=== PATIENT | male | born 1940 | race Caucasian/White ===

== ENCOUNTER 2017-02-08 13:41 | Observation (INO) | payer MEDICARE ==
[~2017-02-08] VITALS: Ht 170.2 cm; Wt 75.9 kg
[2017-02-08 14:07] VITALS: BP 144/75; PULSE 93; RESP 19; TEMP 99; O2SAT 99
--- NOTE | 2017-02-08 14:42 | PD ---
HPI Chief Complaint: General Weakness Time Seen by Provider: 14:30 Travel History International Travel<30 days: No Contact w/Intl Traveler<30days: No Traveled to known affect area: No History of Present Illness HPI This is a 76-year-old male who presents via EMS from home with a report of generalized weakness. Reportedly he has a history of dementia. History is very limited as there is no family available to provide history. I attempted to call his Cecilia on the phone numbers listed however there is no answer. The patient reports that he feels fine. He denies any headache, chest pain or shortness of breath, abdominal pain, nausea or vomiting, diarrhea, difficulty with urination, numbness or tingling or weakness in the extremities. Reportedly he lives with his . [facility] Social History Tobacco Use: No (unable to verify) Allergies-Medications (Allergen,Severity, Reaction): Coded Allergies: No Known Allergies (Verified Allergy, Severe, 03/09/06) Reported Meds & Prescriptions Reported Meds & Active Scripts Active Reported Metformin (Metformin HCl) 500 Mg Tab 500 Mg PO BIDPC With meals Carbidopa-Levodopa 25-100 Mg Tab 1 Tab PO Q8HR Aspirin 81 (Aspirin) 81 Mg Tabdr 81 Mg PO DAILY Galantamine ER (Galantamine Hydrobromide) 8 Mg Caper 8 Mg PO DAILY Lisinopril 5 Mg Tab 5 Mg PO DAILY Review of Systems ROS Limitations: Poor Historian Except as stated in HPI: all other systems reviewed are Neg Physical Exam Exam Limitations: Poor Historian Narrative GENERAL: Well-developed well-nourished male in no acute distress laying on stretcher. He is alert and oriented to person and place. He does not believe the present illness. He thinks that the year is 1997. SKIN: Warm and dry. HEAD: Atraumatic. Normocephalic. EYES: Pupils equal and round. No scleral icterus. No injection or drainage. ENT: No nasal bleeding or discharge. Mucous membranes pink and moist. NECK: Trachea midline. No JVD. CARDIOVASCULAR: Regular rate and rhythm. No murmur appreciated. RESPIRATORY: No accessory muscle use. Clear to auscultation. Breath sounds equal bilaterally. GASTROINTESTINAL: Abdomen soft, non-tender, nondistended. Hepatic and splenic margins not palpable. MUSCULOSKELETAL: No obvious deformities. No clubbing. No cyanosis. No edema. NEUROLOGICAL: Awake and alert. No obvious cranial nerve deficits. Motor grossly within normal limits. Normal speech. PSYCHIATRIC: Appropriate mood and affect; insight and judgment normal. Data Data Last Documented VS Vital Signs Date Time Temp Pulse Resp B/P Pulse Ox O2 Delivery O2 Flow Rate FiO2 02/08/17 15:28 78 15 154/77 97 Room Air 02/08/17 14:07 99.0 Orders Electrocardiogram (02/08/17 14:39) Complete Blood Count With Diff (02/08/17 14:39) Comprehensive Metabolic Panel (02/08/17 14:39) Lactic Acid Sepsis Protocol (02/08/17 14:39) Ckmb (Isoenzyme) Profile (02/08/17 14:39) Troponin I (02/08/17 14:39) Urinalysis - C+S If Indicated (02/08/17 14:39) Blood Culture (02/08/17 14:39) Chest, Single Ap (02/08/17 14:39) Ecg Monitoring (02/08/17 14:39) Iv Access Insert/Monitor (02/08/17 14:39) Oximetry (02/08/17 14:39) Oxygen Administration (02/08/17 14:39) Ct Brain W/O Iv Contrast(Rout) (02/08/17 14:39) Ceftriaxone Inj (Rocephin Inj) (02/08/17 15:45) Azithromycin Inj (Zithromax Inj) (02/08/17 15:45) Admit To Inpatient (02/08/17 ) Inpatient Certification (02/08/17 ) Vital Signs (Adult) MIKE.Q4H (02/08/17 18:08) Scd Bilateral/Knee High MIKE.QSHIFT (02/08/17 18:08) Acetaminophen (Tylenol) (02/08/17 18:15) Activity Oob Ad Celeste (02/08/17 18:08) Resp Oxygen Tito C Titrat 1-4 L (02/08/17 ) Diet Regular Basic (02/08/17 Dinner) Admit Order (Ed Use Only) (02/08/17 18:18) Labs Laboratory Tests Test 02/08/17 14:50 White Blood Count 13.6 TH/MM3 Red Blood Count 4.37 MIL/MM3 Hemoglobin 13.9 GM/DL Hematocrit 40.6 % Mean Corpuscular Volume 93.0 FL Mean Corpuscular Hemoglobin 31.8 PG Mean Corpuscular Hemoglobin 34.2 % Concent Red Cell Distribution Width 12.7 % Platelet Count 214 TH/MM3 Mean Platelet Volume 7.2 FL Neutrophils (%) (Auto) 91.5 % Lymphocytes (%) (Auto) 3.5 % Monocytes (%) (Auto) 4.9 % Eosinophils (%) (Auto) 0.0 % Basophils (%) (Auto) 0.1 % Neutrophils # (Auto) 12.4 TH/MM3 Lymphocytes # (Auto) 0.5 TH/MM3 Monocytes # (Auto) 0.7 TH/MM3 Eosinophils # (Auto) 0.0 TH/MM3 Basophils # (Auto) 0.0 TH/MM3 CBC Comment DIFF FINAL Differential Comment Sodium Level 135 MEQ/L Potassium Level 4.1 MEQ/L Chloride Level 102 MEQ/L Carbon Dioxide Level 25.1 MEQ/L Anion Gap 8 MEQ/L Blood Urea Nitrogen 21 MG/DL Creatinine 1.14 MG/DL Estimat Glomerular Filtration 62 ML/MIN Rate Random Glucose 128 MG/DL Lactic Acid Level 1.8 mmol/L Calcium Level 8.5 MG/DL Total Bilirubin 0.6 MG/DL Aspartate Amino Transf 14 U/L (AST/SGOT) Alanine Aminotransferase 18 U/L (ALT/SGPT) Alkaline Phosphatase 39 U/L Total Creatine Kinase 48 U/L Troponin I LESS THAN 0.02 NG/ML Total Protein 6.9 GM/DL Albumin 3.3 GM/DL MDM Medical Decision Making Medical Screen Exam Complete: Yes Emergency Medical Condition: Yes Medical Record Reviewed: Yes Differential Diagnosis Dementia, sepsis, generalized weakness, difficulty with activities of daily living, CVA Narrative Course This is a 76-year-old male with history of dementia reportedly who comes from home with the report of generalized weakness. I called the numbers listed for his Cecilia several times and was unable to get additional history. He does feel somewhat warm to palpation and his pulse is slightly elevated at 93. Plan is for basic lab work, blood cultures, lactic acid, CT brain, chest x- ray. This patient was moved from the ambulance hallway to the echo pod where care was transitioned to Dr. Garcia. Girish Paul Feb 08, 2017 14:42
--- NOTE | 2017-02-08 15:19 | PD ---
Physical Exam Date Seen by Provider: Feb 08, 2017 Time Seen by Provider: 15:15 Narrative Patient was initially seen in the ambulance [facility] by CARITO Winters. Please see his notes for further Data Data Last Documented VS Vital Signs Date Time Temp Pulse Resp B/P Pulse Ox O2 Delivery O2 Flow Rate FiO2 02/08/17 15:28 78 15 154/77 97 Room Air 02/08/17 14:07 99.0 Orders Electrocardiogram (02/08/17 14:39) Complete Blood Count With Diff (02/08/17 14:39) Comprehensive Metabolic Panel (02/08/17 14:39) Lactic Acid Sepsis Protocol (02/08/17 14:39) Ckmb (Isoenzyme) Profile (02/08/17 14:39) Troponin I (02/08/17 14:39) Urinalysis - C+S If Indicated (02/08/17 14:39) Blood Culture (02/08/17 14:39) Chest, Single Ap (02/08/17 14:39) Ecg Monitoring (02/08/17 14:39) Iv Access Insert/Monitor (02/08/17 14:39) Oximetry (02/08/17 14:39) Oxygen Administration (02/08/17 14:39) Ct Brain W/O Iv Contrast(Rout) (02/08/17 14:39) Ceftriaxone Inj (Rocephin Inj) (02/08/17 15:45) Azithromycin Inj (Zithromax Inj) (02/08/17 15:45) Admit To Inpatient (02/08/17 ) Inpatient Certification (02/08/17 ) Vital Signs (Adult) MIKE.Q4H (02/08/17 18:08) Scd Bilateral/Knee High MIKE.QSHIFT (02/08/17 18:08) Acetaminophen (Tylenol) (02/08/17 18:15) Activity Oob Ad Celeste (02/08/17 18:08) Resp Oxygen Tito C Titrat 1-4 L (02/08/17 ) Diet Regular Basic (02/08/17 Dinner) Admit Order (Ed Use Only) (02/08/17 18:18) Labs Laboratory Tests Test 02/08/17 14:50 White Blood Count 13.6 TH/MM3 Red Blood Count 4.37 MIL/MM3 Hemoglobin 13.9 GM/DL Hematocrit 40.6 % Mean Corpuscular Volume 93.0 FL Mean Corpuscular Hemoglobin 31.8 PG Mean Corpuscular Hemoglobin 34.2 % Concent Red Cell Distribution Width 12.7 % Platelet Count 214 TH/MM3 Mean Platelet Volume 7.2 FL Neutrophils (%) (Auto) 91.5 % Lymphocytes (%) (Auto) 3.5 % Monocytes (%) (Auto) 4.9 % Eosinophils (%) (Auto) 0.0 % Basophils (%) (Auto) 0.1 % Neutrophils # (Auto) 12.4 TH/MM3 Lymphocytes # (Auto) 0.5 TH/MM3 Monocytes # (Auto) 0.7 TH/MM3 Eosinophils # (Auto) 0.0 TH/MM3 Basophils # (Auto) 0.0 TH/MM3 CBC Comment DIFF FINAL Differential Comment Sodium Level 135 MEQ/L Potassium Level 4.1 MEQ/L Chloride Level 102 MEQ/L Carbon Dioxide Level 25.1 MEQ/L Anion Gap 8 MEQ/L Blood Urea Nitrogen 21 MG/DL Creatinine 1.14 MG/DL Estimat Glomerular Filtration 62 ML/MIN Rate Random Glucose 128 MG/DL Lactic Acid Level 1.8 mmol/L Calcium Level 8.5 MG/DL Total Bilirubin 0.6 MG/DL Aspartate Amino Transf 14 U/L (AST/SGOT) Alanine Aminotransferase 18 U/L (ALT/SGPT) Alkaline Phosphatase 39 U/L Total Creatine Kinase 48 U/L Troponin I LESS THAN 0.02 NG/ML Total Protein 6.9 GM/DL Albumin 3.3 GM/DL MDM Medical Record Reviewed: Yes Supervised Visit with DREW: No Narrative Course 76-year-old male presents with worsening mental status changes and fever. The patient has pneumonia with a white count cell of 13.8. The patient has been given Rocephin and Zithromax. He is also mildly dehydrated. There is a call out to for admission. He was unable to call back until an hour and a half later. A call went out to Dr. Peewee Delgado who is gracious enough to put in admission orders. Dr. Delgado will make Dr. Deshpande aware of this admission. Diagnosis Primary Impression: Pneumonia Additional Impressions: Acute on chronic alteration in mental status Dehydration Admitting Information Admitting Physician Requests: Admit Bean Garcia MD Feb 08, 2017 15:19
[2017-02-08 15:20] LABS: AUTOMATED NEUTROPHIL # 12.4 TH/MM3 (1.8-7.7); BASOPHIL % 0.1 % (0.0-2.0); HEMATOCRIT 40.6 % (39.0-51.0); HEMO FLAGS DIFF FINAL; LYMPH % 3.5 % (9.0-44.0); LYMPHOCYTE # 0.5 TH/MM3 (1.0-4.8); MEAN CORPUSCULAR HEMOGLOBIN 31.8 PG (27.0-34.0); MEAN CORPUSCULAR HGB CONC 34.2 % (32.0-36.0); MONO % 4.9 % (0.0-8.0); NEUT % 91.5 % (16.0-70.0); PLATELET COUNT 214 TH/MM3 (150-450); RED BLOOD COUNT 4.37 MIL/MM3 (4.50-5.90); RED CELL DISTRIBUTION WIDTH 12.7 % (11.6-17.2); WHITE BLOOD COUNT 13.6 TH/MM3 (4.0-11.0)
--- NOTE | 2017-02-08 15:23 | RADRPT ---
EXAM DATE/TIME: 02/08/2017 14:55 [facility] COMPARISON: No previous studies available for comparison. INDICATIONS : Fever and weakness. Confusion. MEDICAL HISTORY : Unobtainable. SURGICAL HISTORY : Unobtainable. ENCOUNTER: Initial ACUITY: 1 day PAIN SCORE: 0/10 LOCATION: Bilateral chest FINDINGS: Patchy airspace disease is seen in the right lung. Minimal parenchymal changes are present in the le ft base. The heart is minimally large. There is no failure. CONCLUSION: Parenchymal changes on the right suspicious for inflammatory process. Perez Zhou MD FACR on February 08, 2017 at 15:19 Board Certified Radiologist. This report was verified electronically.
[2017-02-08 15:28] VITALS: BP 154/77; PULSE 78; RESP 15; O2SAT 97
[2017-02-08 15:37] LABS: ALT (GPT) 18 U/L (12-78); ANION GAP 8 MEQ/L (5-15); AST (GOT) 14 U/L (15-37); BICARBONATE 25.1 MEQ/L (21.0-32.0); BLOOD UREA NITROGEN 21 MG/DL (7-18); CHLORIDE 102 MEQ/L (98-107); GLOMERULAR FILTRATION RATE 62 ML/MIN (>89); POTASSIUM 4.1 MEQ/L (3.5-5.1); SODIUM (NA) 135 MEQ/L (136-145)
[2017-02-08 15:41] LABS: ALKALINE PHOSPHATASE 39 U/L (45-117); TOTAL BILIRUBIN ADULT 0.6 MG/DL (0.2-1.0)
[2017-02-08 15:42] LABS: CREATINE KINASE 48 U/L (39-308)
[2017-02-08] MEDS ORDERED: OMEP20CA2 (15:42)
[2017-02-08] MEDS ORDERED: ACET160T11 (15:42)
[2017-02-08] MEDS ORDERED: CARB25TA9 PO (15:42)
[2017-02-08] MEDS ORDERED: ASPI-110 PO (15:42)
[2017-02-08] MEDS ORDERED: LISI-519 PO (15:42)
[2017-02-08] MEDS ORDERED: METF500T PO (15:42)
[2017-02-08] MEDS ORDERED: GALA8CAP PO (15:42)
[2017-02-08] MEDS ORDERED: cefTRIAXone INJ 1,000 MG in SODIUM CHLORIDE 0.9% INJ 100 ML IV ONE (15:45)
[2017-02-08] MEDS ORDERED: AZITHROMYCIN INJ 500 MG in SODIUM CHLOR 0.9% 250 ML INJ 250 ML IV ONE (15:45)
--- NOTE | 2017-02-08 16:00 | RADRPT ---
EXAM DATE/TIME: 02/08/2017 15:29 [facility] COMPARISON: No previous studies available for comparison. INDICATIONS : Patient is confused, altered mental status with fever. RADIATION DOSE: 56.39 CTDIvol (mGy) MEDICAL HISTORY : None SURGICAL HISTORY : None. ENCOUNTER: Initial ACUITY: 1 day PAIN SCALE: 3/10 LOCATION: Bilateral cranial TECHNIQUE: Multiple contiguous axial images were obtained of the head. Using automated exposure control and adj ustment of the mA and/or kV according to patient size, radiation dose was kept as low as reasonably a chievable to obtain optimal diagnostic quality images. DICOM format image data is available electro nically for review and comparison. FINDINGS: Mild central cerebral atrophy is noted. Old infarct involving the left frontal lobe is noted. Moder ate periventricular white matter small vessel ischemic changes are noted bilaterally. There is evidence of old lacunar infarcts within the right basal ganglia. There is no acute hemorrhage, midline shift or extraaxial f luid collections. No acute infarction is noted. There is a small 7 mm calcified right anterior parafalcine meningioma. The bone windows are unremarkable. Minimal mucosal thickening is noted within the left sphenoid sinus. CONCLUSION: 1. Old lacunar infarcts within the right basal ganglia. 2. Moderate periventricular white matter small vessel ischemic changes bilaterally. 3. Old infarct involving left frontal lobe. 4. A 7 mm calcified right parafalcine extraaxial mass consistent with probable meningioma. 5. Central cerebral atrophy. 6. No acute infarct, acute hemorrhage, mass effect or extraaxial fluid collections. 7. Mild mucosal thickening within the left sphenoid sinus. Rodrigo Cotto MD on February 08, 2017 at 15:51 Board Certified Radiologist. This report was verified electronically.
[2017-02-08] MEDS ORDERED: ACETAMINOPHEN 325 MG TAB PO PRN (18:15)
[2017-02-08 19:38] VITALS: BP 167/86; PULSE 83; RESP 15; O2SAT 97
[2017-02-08] MEDS ORDERED: AZITHROMYCIN INJ 500 MG in SODIUM CHLOR 0.9% 250 ML INJ 250 ML IV SCH (21:00)
[2017-02-08] MEDS ORDERED: DEXTROSE 50% IN WATER 50 ML VIAL(D50) IV PRN (21:00)
[2017-02-08] MEDS ORDERED: GLUCAGON 1 MG/ML VIAL OTHER PRN (21:00)
[2017-02-08] MEDS: INSULIN ASPART SUPPLEMENTAL SCALE SQ SCH (21:00)
--- NOTE | 2017-02-08 21:09 | HHI.HP ---
HPI Service [facility] Hospitalists Primary Care Physician Ryan Godoy MD Admission Diagnosis pneumonia, altered mental status, dehydration. Chief Complaint: weakness mild cough for few days Travel History International Travel<30 Days: No Contact w/Intl Traveler <30 Da: No Traveled to Known Affected Are: No History of Present Illness 76 y/o white male with hx hypertension ,diabetes ,parkinson ,dementia,who has been feeling weak for a few days with mild cough no sputum and has not been drinking too much liquid and was brought to hospital ,patient with dementia and history limited did have some fever according to patient. In er was found to have pneumonia and will be admitted for IV antibiotics. Review of Systems Constitutional: COMPLAINS OF: Fever Respiratory: COMPLAINS OF: Cough Other weakness Past Family Social History Past Medical History dm,hypertension,parkinson,alzheimer dementia Past Surgical History patient had tonsil surgery years ago Reported Medications metformin,lisinopril med for dementia,prilosec, Allergies: Coded Allergies: No Known Allergies (Verified Allergy, Severe, 03/09/06) Social History NS,ND Physical Exam Vital Signs Vital Signs Date Time Temp Pulse Resp B/P Pulse Ox O2 Delivery O2 Flow Rate FiO2 02/08/17 19:39 83 15 98 Room Air 02/08/17 19:38 83 15 167/86 97 Room Air 02/08/17 19:14 21 02/08/17 15:28 78 15 154/77 97 Room Air 02/08/17 15:28 78 02/08/17 14:07 99.0 93 19 144/75 99 Physical Exam GENERAL: This is a well-nourished, well-developed patient, in no apparent distress. SKIN: No rashes, ecchymoses or lesions. Cool and dry. HEAD: Atraumatic. Normocephalic. No temporal or scalp tenderness. EYES: Pupils equal round and reactive. Extraocular motions intact. No scleral icterus. No injection or drainage. ENT: Nose without bleeding, purulent drainage or septal hematoma. Throat without erythema, tonsillar hypertrophy or exudate. Uvula midline. Airway patent. NECK: Trachea midline. No JVD or lymphadenopathy. Supple, nontender, no meningeal signs. CARDIOVASCULAR: Regular rate and rhythm without murmurs, gallops, or rubs. RESPIRATORY: Clear to auscultation. Breath sounds equal bilaterally. No wheezes , rales, or rhonchi. GASTROINTESTINAL: Abdomen soft, non-tender, nondistended. No hepato-splenomegaly , or palpable masses. No guarding. MUSCULOSKELETAL: Extremities without clubbing, cyanosis, or edema. No joint tenderness, effusion, or edema noted. No calf tenderness. Negative Homans sign bilaterally. NEUROLOGICAL: Awake and alert. Cranial nerves II through XII intact. Motor and sensory grossly within normal limits. Five out of 5 muscle strength in all muscle groups. Normal speech. Laboratory Laboratory Tests Test 02/08/17 14:50 White Blood Count 13.6 Red Blood Count 4.37 Hemoglobin 13.9 Hematocrit 40.6 Mean Corpuscular Volume 93.0 Mean Corpuscular Hemoglobin 31.8 Mean Corpuscular Hemoglobin 34.2 Concent Red Cell Distribution Width 12.7 Platelet Count 214 Mean Platelet Volume 7.2 Neutrophils (%) (Auto) 91.5 Lymphocytes (%) (Auto) 3.5 Monocytes (%) (Auto) 4.9 Eosinophils (%) (Auto) 0.0 Basophils (%) (Auto) 0.1 Neutrophils # (Auto) 12.4 Lymphocytes # (Auto) 0.5 Monocytes # (Auto) 0.7 Eosinophils # (Auto) 0.0 Basophils # (Auto) 0.0 CBC Comment DIFF FINAL Differential Comment Sodium Level 135 Potassium Level 4.1 Chloride Level 102 Carbon Dioxide Level 25.1 Anion Gap 8 Blood Urea Nitrogen 21 Creatinine 1.14 Estimat Glomerular Filtration 62 Rate Random Glucose 128 Lactic Acid Level 1.8 Calcium Level 8.5 Total Bilirubin 0.6 Aspartate Amino Transf 14 (AST/SGOT) Alanine Aminotransferase 18 (ALT/SGPT) Alkaline Phosphatase 39 Total Creatine Kinase 48 Troponin I LESS THAN 0.02 Total Protein 6.9 Albumin 3.3 Date/Time Procedure Status Source Growth 02/08/17 14:50 Aerobic Blood Culture Received Blood Peripheral Pending 02/08/17 14:50 Anaerobic Blood Culture Received Blood Peripheral Pending Result Diagram: 02/08/17 1450 02/08/17 1450 Imaging Last [address] 02/08/17 1439 Signed Impressions: Service Date/Time: Wednesday, February 08, 2017 15:29 - CONCLUSION: 1. Old lacunar infarcts within the right basal ganglia. 2. Moderate periventricular white matter small vessel ischemic changes bilaterally. 3. Old infarct involving left frontal lobe. 4. A 7 mm calcified right parafalcine extraaxial mass consistent with probable meningioma. 5. Central cerebral atrophy. 6. No acute infarct, acute hemorrhage, mass effect or extraaxial fluid collections. 7. Mild mucosal thickening within the left sphenoid sinus. Rodrigo Cotto MD Chest X-Ray 02/08/17 1439 Signed Impressions: Service Date/Time: Monday, February 08, 2017 14:55 - CONCLUSION: Parenchymal changes on the right suspicious for inflammatory process. Perez Zhou MD FACR Course in er started on rocephin and zithromax Assessment and Plan Problem List: (1) Pneumonia Status: Acute Plan: probable community acquired pneumonia -rocephin and zithromax IV follow labs (2) Acute on chronic alteration in mental status Status: Acute Plan: probably related to infection (3) Dementia Status: Chronic Plan: continue home med (4) Diabetes Status: Chronic Plan: continue metformin Assessment and Plan further plan as case develops Code Status full Discussed Condition With patient Physician Certification 2 Midnight Certification Type: Admission for Inpatient Services Order for Inpatient Services The services are ordered in accordance with Medicare regulations or non- Medicare payer requirements, as applicable. In the case of services not specified as inpatient-only, they are appropriately provided as inpatient services in accordance with the 2-midnight benchmark. Estimated LOS (days): 2 2 days is the estimated time the patient will need to remain in the hospital, assuming treatment plan goals are met and no additional complications. Post-Hospital Plan: Not yet determined Problem Qualifiers (1) Diabetes: Darien Almazan MD Feb 08, 2017 21:09
[2017-02-08 21:48] VITALS: BP 136/76; PULSE 93; RESP 16; O2SAT 95
[2017-02-08 22:22] VITALS: BP 136/71; PULSE 93; RESP 18; TEMP 100; O2SAT 96
[2017-02-08] MEDS: CARBIDOPA/LEVODOPA 25 MG/100 MG TAB PO SCH (22:33)
[2017-02-09] VITALS (7 sets, daily range): BP systolic 130–154; BP diastolic 64–79; PULSE 60–73; RESP 16–20; TEMP 96.7–98.9; O2SAT 96–99
[2017-02-09] MEDS: CARBIDOPA/LEVODOPA 25 MG/100 MG TAB PO SCH ×3 (05:37→22:00)
[2017-02-09] MEDS: INSULIN ASPART SUPPLEMENTAL SCALE SQ SCH ×4 (06:32→21:00)
[2017-02-09 07:40] LABS: BICARBONATE 25.4 MEQ/L (21.0-32.0); POTASSIUM 3.4 MEQ/L (3.5-5.1)
[2017-02-09 07:41] LABS: AUTOMATED NEUTROPHIL # 7.6 TH/MM3 (1.8-7.7); BASOPHIL % 0.1 % (0.0-2.0); EOSINOPHIL % 0.3 % (0.0-4.0); HEMATOCRIT 35.7 % (39.0-51.0); HEMO FLAGS DIFF FINAL; LYMPHOCYTE # 1.4 TH/MM3 (1.0-4.8); MEAN CELL VOLUME 92.1 FL (80.0-100.0); MEAN CORPUSCULAR HEMOGLOBIN 32.2 PG (27.0-34.0); NEUT % 77.6 % (16.0-70.0); PLATELET COUNT 213 TH/MM3 (150-450); RED BLOOD COUNT 3.87 MIL/MM3 (4.50-5.90); RED CELL DISTRIBUTION WIDTH 12.5 % (11.6-17.2); WHITE BLOOD COUNT 9.8 TH/MM3 (4.0-11.0)
[2017-02-09] MEDS: LISINOPRIL 5 MG TAB PO SCH (08:34)
[2017-02-09] MEDS: PANTOPRAZOLE SOD 20 MG DELAYED RELEASE TAB PO SCH (08:34)
[2017-02-09] MEDS: metFORMIN HCL 500 MG TAB PO SCH ×2 (08:34→18:29)
[2017-02-09] MEDS: ASPIRIN EC 81 MG TABEC PO SCH (08:34)
[2017-02-09] MEDS: GALANTAMINE HYDROBROMIDE 4 MG TAB PO SCH ×2 (08:34→21:00)
--- NOTE | 2017-02-09 08:56 | HHI.PR ---
Subjective Remarks eager for d/c. bg in 50s this AM. Asx. Objective Vitals heart reg lung few course basilar bs abd s/nt ext s/nt Vital Signs Date Time Temp Pulse Resp B/P Pulse Ox O2 Delivery O2 Flow Rate FiO2 02/09/17 08:00 98.7 72 18 136/72 98 02/09/17 04:00 97.8 68 17 130/64 96 02/08/17 22:22 100.0 93 18 136/71 96 02/08/17 21:48 93 16 136/76 95 Room Air 02/08/17 19:39 83 15 98 Room Air 02/08/17 19:38 83 15 167/86 97 Room Air 02/08/17 19:14 21 02/08/17 15:28 78 15 154/77 97 Room Air 02/08/17 15:28 78 02/08/17 14:07 99.0 93 19 144/75 99 02/08/17 02/08/17 02/09/17 14:59 22:59 06:59 Output Total 200 ml Balance -200 ml Output Urine Total 200 ml # Voids 1 Result Diagram: 02/09/17 0613 02/09/17 0613 Imaging Last [address] 02/08/17 1439 Signed Impressions: Service Date/Time: Wednesday, February 08, 2017 15:29 - CONCLUSION: 1. Old lacunar infarcts within the right basal ganglia. 2. Moderate periventricular white matter small vessel ischemic changes bilaterally. 3. Old infarct involving left frontal lobe. 4. A 7 mm calcified right parafalcine extraaxial mass consistent with probable meningioma. 5. Central cerebral atrophy. 6. No acute infarct, acute hemorrhage, mass effect or extraaxial fluid collections. 7. Mild mucosal thickening within the left sphenoid sinus. Rodrigo Cotto MD Chest X-Ray 02/08/17 1439 Signed Impressions: Service Date/Time: Wednesday, February 08, 2017 14:55 - CONCLUSION: Parenchymal changes on the right suspicious for inflammatory process. Perez Zhou MD FACR A/P Problem List: (1) Pneumonia Status: Acute Plan: Pt admitted with CAP and hypoglycemia last night Had hyoglycemia to 50s again this AM Pt eager for d/c will observe his bg noon/4pm..he was given his metformin already ambulate cont abx and convert to po soon. reeval for d/c later today. (2) Dementia Status: Chronic Plan: continue home med (3) Diabetes Status: Chronic Plan: continue metformin Problem Qualifiers (1) Diabetes: Peewee Delgado MD Feb 09, 2017 08:56
[2017-02-09] MEDS ORDERED: POTASSIUM CHLORIDE 20 MEQ CONTROLLED RELEASE TAB PO ONE (09:00)
[2017-02-09] MEDS ORDERED: PNEUMOCOCCAL POLYVALENT INJ 25 MCG/0.5 ML SYR IM ONE (10:00)
--- NOTE | 2017-02-09 12:56 | EKG ---
Date Performed: 02/08/2017 Time Performed: 15:47:46 PTAGE: 76 years EKG: Sinus rhythm BORDERLINE LEFT AXIS DEVIATION MINIMAL VOLTAGE CRITERIA FOR LVH, CONSIDER NORMAL VARIANT NONSPECIFIC T-WAVE ABNORMALITY BORDERLINE ECG PREVIOUS TRACING : 11/02/1999 13.10 DOCTOR: Kiel Singer Interpretating Date/Time 02/09/2017 12:52:10
[2017-02-09] MEDS ORDERED: LEVA500T20 PO (15:48)
--- NOTE | 2017-02-09 15:49 | HHI.DCPOC ---
Discharge Care Plan Diagnosis: (1) Pneumonia (2) Diabetes Goals to Promote Your Health * To prevent worsening of your condition and complications * To maintain your health at the optimal level Directions to Meet Your Goals Take your medications as prescribed Follow your dietary instruction Follow activity as directed Keep your appointments as scheduled Take your immunizations and boosters as scheduled If your symptoms worsen call your PCP, if no PCP go to Urgent Care Center or Emergency Room Smoking is Dangerous to Your Health. Avoid second hand smoke Call the 24-hour hour crisis hotline for domestic abuse at Peewee Delgado MD Feb 09, 2017 15:49
[2017-02-09] MEDS ORDERED: cefTRIAXone INJ 1,000 MG in SODIUM CHLORIDE 0.9% INJ 100 ML IV SCH (16:00)
[2017-02-09] MEDS ORDERED: AZITHROMYCIN INJ 500 MG in SODIUM CHLOR 0.9% 250 ML INJ 250 ML IV SCH (17:00)
[2017-02-10] VITALS: BP 150/76; PULSE 80; RESP 20; TEMP 97.2; O2SAT 96
[2017-02-10 04:00] VITALS: BP 161/81; PULSE 74; RESP 20; TEMP 98.7; O2SAT 96
[2017-02-10] MEDS: CARBIDOPA/LEVODOPA 25 MG/100 MG TAB PO SCH (06:42)
[2017-02-10] MEDS: INSULIN ASPART SUPPLEMENTAL SCALE SQ SCH (06:44)
[2017-02-10 08:00] VITALS: BP 152/88; PULSE 74; RESP 18; TEMP 97.3; O2SAT 96
[2017-02-10 08:14] VITALS: O2SAT 94
[2017-02-10] MEDS: PANTOPRAZOLE SOD 20 MG DELAYED RELEASE TAB PO SCH (08:44)
[2017-02-10] MEDS: GALANTAMINE HYDROBROMIDE 4 MG TAB PO SCH (08:44)
[2017-02-10] MEDS: metFORMIN HCL 500 MG TAB PO SCH (08:44)
[2017-02-10] MEDS: ASPIRIN EC 81 MG TABEC PO SCH (08:44)
[2017-02-10] MEDS: LISINOPRIL 5 MG TAB PO SCH (08:44)
[2017-02-10] MEDS ORDERED: METF500T PO (09:21)
--- NOTE | 2017-02-10 09:22 | HHI.PR ---
Subjective Remarks eager for d/c. Objective Vitals haert reg lung cta abd s/nt ext no edema Vital Signs Date Time Temp Pulse Resp B/P Pulse Ox O2 Delivery O2 Flow Rate FiO2 02/10/17 08:14 94 21 02/10/17 08:00 97.3 74 18 152/88 96 02/10/17 04:00 98.7 74 20 161/81 96 02/10/17 00:00 97.2 80 20 150/76 96 02/09/17 21:17 99 21 02/09/17 20:00 98.1 73 20 152/79 96 02/09/17 16:00 98.9 68 16 142/75 99 02/09/17 12:00 96.7 60 16 154/77 98 02/09/17 10:31 96 21 02/09/17 02/09/17 02/10/17 15:00 23:00 07:00 Intake Total 1080 ml 240 ml 240 ml Balance 1080 ml 240 ml 240 ml Intake Oral 1080 ml 240 ml 240 ml # Voids 4 1 2 # Bowel Movements 0 Result Diagram: 02/09/1713 02/09/17 0613 Imaging Last [address] 02/08/17 1439 Signed Impressions: Service Date/Time: Wednesday, February 08, 2017 15:29 - CONCLUSION: 1. Old lacunar infarcts within the right basal ganglia. 2. Moderate periventricular white matter small vessel ischemic changes bilaterally. 3. Old infarct involving left frontal lobe. 4. A 7 mm calcified right parafalcine extraaxial mass consistent with probable meningioma. 5. Central cerebral atrophy. 6. No acute infarct, acute hemorrhage, mass effect or extraaxial fluid collections. 7. Mild mucosal thickening within the left sphenoid sinus. Rodrigo Cotto MD Chest X-Ray 02/08/17 1439 Signed Impressions: Service Date/Time: Wednesday, February 08, 2017 14:55 - CONCLUSION: Parenchymal changes on the right suspicious for inflammatory process. Perez Zhou MD FACR A/P Problem List: (1) Pneumonia Status: Acute Plan: Pt admitted with CAP and hypoglycemia in mornings Pt eager for d/c stop evening dose metformin and take bedtime snack f/u pcp 3-5 days cont abx for pna. (2) Dementia Status: Chronic Plan: continue home med (3) Diabetes Status: Chronic Plan: continue metformin Problem Qualifiers (1) Diabetes: Peewee Delgado MD Feb 10, 2017 09:22
== END 2017-02-10 11:18 | disposition home or self-care (01) ==
LOC: NEPE 13:41 → INTOOBSV 18:20 → NEDA 18:20 → HOCB 22:11
PROVIDERS: ADMIT Hospitalist; ATTEND Hospitalist
DX: J18.9 Pneumonia, unspecified organism (principal); R41.82 Altered mental status, unspecified; E86.0 Dehydration; I10 Essential (primary) hypertension; E11.9 Type 2 diabetes mellitus without complications; G20 Parkinson's disease; G30.9 Alzheimer's disease, unspecified; F03.90 Unspecified dementia, unspecified severity, without behavioral disturbance, psychotic disturbance, mood disturbance, and anxiety; G31.9 Degenerative disease of nervous system, unspecified; Z79.899 Other long term (current) drug therapy; Z79.84 Long term (current) use of oral hypoglycemic drugs
CPT/HCPCS: 70450; 71010; 80048; 80053; 82550; 82948; 83605; 84484; 85025; 87040; 93005; 96365; 96367; 99285; G0378; J0456; J0696; J7050